=== PATIENT | male | born 1995 | race African-American/Black ===

== ENCOUNTER 2017-07-16 20:16 | Inpatient (IN) | payer OTHER ==
[~2017-07-16] VITALS: Ht 165.1 cm; Wt 55.0 kg
[2017-07-17 00:10] VITALS: BP 129/83
[2017-07-17] MEDS ORDERED: ACETAMINOPHEN TAB 650MG DOSE (2X325MG) PO PRN (01:00)
[2017-07-17] MEDS ORDERED: LORazepam 1 MG TAB PO PRN (01:00)
[2017-07-17] MEDS ORDERED: traZODone 50 MG TAB PO PRN (01:00)
[2017-07-17] MEDS ORDERED: MAALOX 30 ML SUSP *UDC PO PRN (01:00)
[2017-07-17] MEDS ORDERED: MOM 30ML SUSPENSION UDC PO PRN (01:00)
[2017-07-17 06:36] VITALS: BP 117/59
[2017-07-17] MEDS: NICOTINE 7 MG/24 HR TRANSDERMAL TD SCH (09:33)
--- NOTE | 2017-07-17 15:45 | MHHPE ---
DATE OF ADMISSION: 07/16/2017 LEGAL STATUS AT ADMISSION: 9.39 legal status CHIEF COMPLAINT: "I have been feeling depressed". 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 According to the record, the patient came to the emergency department to be evaluated for depression and suicidal thoughts. The patient stated that he received a phone call from his requesting divorce. His is also an active duty that is stationed in [place] state. They have been for one year. The patient has been deployed to [place] from September to two days ago. The patient reports was having suicidal thoughts, feeling confused, depressed, "incomplete". The patient has been in the [employer] three years. The patient states that prior to his calling, he could have episodes of short-lived moderate depression on and off, maybe two to three days out of a month in which he does not want to do anything, kept to himself, being more isolated. However, says that his energy, appetite, sleep or self esteem had not changed. Says that when he received the call from his , he was afraid that he may hurt himself. Making a statement such as "go away completely". So he decided to get help. During the interview there is no evidence of auditory or visual hallucinations or delusions. PAST MEDICAL HISTORY: The patient denies any acute medical problems. ALLERGIES: No known drug allergies. PAST PSYCHIATRIC HISTORY: The patient has no past psychiatric history. FAMILY HISTORY: The patient denies any psychiatric family history. The patient reports that substance abuse is on both sides of his family. SUBSTANCE ABUSE HISTORY: The patient denies any current or past problem with drugs or alcohol. He says that he a social drinker and he may drink one to two beers 2 to 3 times a week in a social context. SOCIAL HISTORY: The patient was raised mostly by his mother. Denies any abuse or neglect during childhood. No problems socializing. He used to have a few good friends as he does now. He has been for a year. Has been in the [employer] for the last three years. Has been deployed to [place] since September of 2016, until two days ago. 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 PSYCHIATRIC REVIEW OF SYSTEMS: Bipolar/elena: No evidence of destructibility, grandiosity, flight of ideas, or pressured speech. Substance abuse disorder: The patient answers negative to each question. Anxiety disorder: The patient reports anxiety and rumination, but denies panic, agoraphobia, obsessive-compulsive disorder (OCD), questioning and repetitively checking things over and over. Somatization disorder: Screening for pain, conversion, GI or sexual symptoms are negative. Eating disorder: Screening for dieting, use of laxatives, eating and binges is negative. Cognitive disorder: Screening for short and senior living memory, orientation, and general information is negative for cognitive disorder. Psychotic disorders: No evidence of delusions, paranoia, grandiosity, or samaritan preoccupation. No hallucinations. No looseness of association. PHYSICAL EXAMINATION: As per physician assistant buyer. LABS: Were not drawn at the emergency department. MENTAL STATUS EXAM: The patient is dressed in [facility]. The patient is calm and cooperative. His speech is soft and monotone. Has fair eye contact. Mood is depressed and anxious. Affect is restricted and labile. Tearful at times. No evidence of delusions or hallucinations. The patient is oriented to time, place, person and situation. Maintains attention and concentration correctly. Instant recall, recent and remote memory are intact. Thought processes are chronological and goal directed. The patient reports suicidal thoughts, but no homicidal ideation. Judgment and insight are fair. DIAGNOSES: Richmond I: Unspecified depressive disorder. Rule out major depressive disorder versus adjustment disorder with depressed mood. [place] II: Deferred. Richmond III: None acute. INITIAL TREATMENT PLAN: The patient was admitted on a 9.39 legal status. Complete history was obtained. With his permission family will be contacted and data base will be expanded. His medication regimen will be reviewed and changed accordingly. He will be provided with protected environment. He will be attending individual, group and milieu therapy. He will also receive supportive psychoeducation. Discharge planning will commence immediately. Length of stay will be between 5 and 7 days. Patient followup will be strongly recommended. Initial treatment plan will focus initially on depression and risks for suicide.
[2017-07-17 18:20] VITALS: BP 131/70
[2017-07-18 06:54] VITALS: BP 133/63
[2017-07-18] MEDS: NICOTINE 7 MG/24 HR TRANSDERMAL TD SCH ×2 (09:00→18:07)
[2017-07-18 20:52] VITALS: BP 121/67
[2017-07-19 06:32] VITALS: BP 133/60
[2017-07-19 06:53] LABS: BASO % 0.5 % (0.0-1.0); EOS # 0.3 10^3/uL (0.0-0.50); EOS % 9.2 % (0.0-3.0); LYMPH # 1.8 10^3/uL (1.5-6.5); MEAN CORPUSCULAR HEMOGLOBIN 27.1 pg (27.0-33.0); MEAN CORPUSCULAR HGB CONC 31.5 g/dl (32.0-36.5); MEAN CORPUSCULAR VOLUME 85.9 fl (80.0-96.0); MONO # 0.4 10^3/uL (0.0-0.8); MONO % 9.7 % (0.0-5.0); NEUTROPHILS # 1.2 10^3/uL (1.8-7.7); NEUTROPHILS % 32.6 % (36.0-66.0); PLATELET COUNT, AUTOMATED 193 10^3/uL (150-450); RED CELL DISTRIBUTION WIDTH 13.3 % (11.5-14.5); WHITE BLOOD COUNT 3.7 10^3/uL (4.0-10.0)
[2017-07-19 07:29] LABS: ALBUMIN 3.9 GM/DL (3.2-5.2); ALBUMIN/GLOBULIN RATIO 1.11 (1.00-1.93); ALKALINE PHOSPHATASE 46 U/L (45-117); ALT/SGPT 14 U/L (12-78); ANION GAP 6 MEQ/L (8-16); AST/SGOT 16 U/L (7-37); BILIRUBIN,TOTAL 0.7 MG/DL (0.2-1.0); BLOOD UREA NITROGEN 14 MG/DL (7-18); CARBON DIOXIDE LEVEL 31 MEQ/L (21-32); CHLORIDE LEVEL 106 MEQ/L (98-107); CREATININE FOR GFR 1.14 MG/DL (0.70-1.30); GLOMERULAR FILTRATION RATE > 60.0 (>60); GLUCOSE, FASTING 91 MG/DL (70-105); POTASSIUM SERUM 4.2 MEQ/L (3.5-5.1); SODIUM LEVEL 143 MEQ/L (136-145); T UPTAKE 40 % (33-40); THYROXINE (T4) 7.9 UG/DL (4.5-12.0); TOTAL PROTEIN 7.4 GM/DL (6.4-8.2)
[2017-07-19] MEDS: NICOTINE 7 MG/24 HR TRANSDERMAL TD SCH (08:41)
--- NOTE | 2017-07-19 11:54 | MHIPN ---
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 SUBJECTIVE: "I feel about the same." OBJECTIVE: The patient is denying any symptoms of depression and suicidal ideation. The patient is interacting minimally with other patients and staff. There is no evidence of psychotic symptoms. No auditory or visual hallucinations. No delusions. The patient says that since he has been here he has been feeling better. MENTAL STATUS EXAMINATION: The patient is dressed in [facility]. Patient is calm and cooperative. Has fair eye contact. Speech is slow and monotone. Mood is slightly depressed. Affect is somewhat restricted. No delusions. No hallucinations. Attention, concentration and memory are fair. The patient is able to contract for safety. Insight and judgment fair. ASSESSMENT: 1. Depression. 2. Suicidal ideation. PLAN: 1. Continue with observation. No psychotropic medication has been prescribed at this time since the patient is denying suicidal thoughts and denying depression and prefers not to be started on any medication.
--- NOTE | 2017-07-19 13:00 | MHHPE ---
DATE OF ADMISSION: 07/16/2017 Please refer to psychiatric history and evaluation for further details on this admission. This examination and history is intended for medical issues which may need treatment, followup or consult on this 22-year-old male. ALLERGIES: No known allergy. PRIMARY CARE PROVIDER: [facility]. SOCIAL HISTORY: He is . 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 His is a soldier. She is currently stationed elsewhere. EtOH two to three times a week, beer. Smokes 4-5 cigarettes per day. Recreational drug use none. PAST MEDICAL HISTORY: Negative. PAST SURGICAL HISTORY: Negative. HOME MEDICATIONS: None. FAMILY HISTORY: Noncontributory. Ten systems review was done and was unremarkable. PHYSICAL EXAMINATION: 22-year-old cooperative male in no acute distress. Height 65 inches, weight 55 kg. BMI 20.2. Blood pressure 133/63, pulse 62, respirations 16, temperature 98.8. The patient is alert and oriented times three. Pupils equal and reactive to light. Extraocular movements intact. Cornea and sclera clear. Conjunctiva normal. No facial asymmetry. Pharynx, tongue and gums pink and moist. Tongue is midline. Neck is supple, without lymphadenopathy. No thyromegaly. No goiter. Carotids 2+ without bruit. Chest clear to auscultation, without wheeze or retraction. Heart is regular. Abdomen benign. Bowel sounds positive. Genitourinary ()/Rectal: Not done. Extremities show equal strength, full range of motion. No cyanosis, clubbing or edema. Peripheral pulses equal and palpable bilaterally. Skin is warm and dry. IMPRESSION AND PLAN: 1. Psychiatric plan per psychiatry. No acute medical issues.
[2017-07-19 18:00] VITALS: BP 110/67
--- NOTE | 2017-07-20 04:30 | MHIPN ---
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 SUBJECTIVE: "I feel much better. I was able to talk to my ." OBJECTIVE: Patient is improving, appears less depressed. No psychomotor retardation. His facial expression is less restricted. He is interacting better with other patients and staff. There is no evidence of psychotic symptoms. No auditory or visual hallucinations or delusions. Insight is improved. MENTAL STATUS EXAMINATION: Patient is dressed in [facility]. Patient is cooperative. Has fair eye contact. Speech is slow and monotone. Mood is depressed, but improved. Affect is less restricted. No delusions. No hallucinations. Attention, memory and concentration are fair. Patient is able to contract for safety. Insight and judgment are fair. ASSESSMENT: 1. Depression. 2. Suicidal ideation. PLAN: Continue observation since patient at this time is improving and denying suicidal thoughts and the trigger for this admission was the fact that his asked him for a divorce.
[2017-07-20 06:44] VITALS: BP 112/61
[2017-07-20] MEDS: NICOTINE 7 MG/24 HR TRANSDERMAL TD SCH (08:28)
[2017-07-20 18:12] VITALS: BP 120/63
--- NOTE | 2017-07-20 18:13 | IPN ---
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 SUBJECTIVE: "I am okay." OBJECTIVE: Patient has improved significantly since admission. Patient no longer has psychomotor retardation. He is no longer labile. He is interacting well with other patients and the staff. No psychotic symptoms. No auditory or visual hallucinations. No delusions. Insight is improved. MENTAL STATUS EXAMINATION: Patient dressed in [facility]. He is cooperative. Fair eye contact. Speech is normal in rate, volume and articulation. Mood is less depressed. Affect is less restricted. No delusions. No hallucinations. Attention, concentration and memory are fair. Patient is keisha for safety. Insight and judgment are fair. ASSESSMENT: 1. Depression. 2. Suicidal ideation. PLAN: Continue with current treatment. Patient prefers to be treated only with psychosocial measures and does not like to take medication. Patient is improving.
[2017-07-21 06:49] VITALS: BP 116/59
[2017-07-21] MEDS: NICOTINE 7 MG/24 HR TRANSDERMAL TD SCH (08:47)
--- NOTE | 2017-07-21 17:40 | MHIPN ---
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 SUBJECTIVE: "I am feeling fine." OBJECTIVE: The patient reports significant improvement. The patient denied any feelings of depression or suicidal ideation. There is no evidence of psychotic symptoms. No auditory or visual hallucinations or delusions. Insight is fair. MENTAL STATUS EXAMINATION: Patient dressed in [facility]. Calm and cooperative. Has fair eye contact. Speech is normal in rate, volume and articulation. Mood is euthymic. Affect is congruent with mood. No delusions. No hallucinations. Attention, concentration and memory are fair. Patient denies suicidal or homicidal ideations. Insight and judgment are fair. ASSESSMENT: 1. Depression. 2. Suicidal ideation. PLAN: The patient is doing much better. If continues improving, will discharge tomorrow after a chain of command meeting.
[2017-07-21 18:00] VITALS: BP 127/70
[2017-07-22 06:00] VITALS: BP 94/58
[2017-07-22] MEDS: NICOTINE 7 MG/24 HR TRANSDERMAL TD SCH (08:59)
--- NOTE | 2017-07-22 15:31 | MHDS ---
DATE OF ADMISSION: 07/16/2017 DATE OF DISCHARGE: 07/22/2017 LEGAL STATUS AT ADMISSION: 9.39 legal status. 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 According to the record, patient came to the emergency department (ED) to be evaluated for depression and suicidal thoughts. Patient stated that he received a phone call from his requesting a divorce. His is also in active duty and is stationed in [place] state. They have been for one year. Patient has been deployed to [place] from September to two days ago. Patient reports he was having suicidal thoughts, feeling confused, depressed, "incomplete". Patient has been in the [employer] for 3 years. Patient states that prior to his calling, he could have episodes of short-lived moderate depression on and off maybe 2-3 days out of a month, in which he does not want to do anything, keeping to himself, being more isolated. However, he says that his energy, appetite, sleep, and self-esteem had not changed. He says that when he received the call from his , he was afraid that he may hurt himself, so he decided to get help. During the interview, there was no evidence of auditory or visual hallucinations or delusions. LABORATORY DATA AT ADMISSION: CBC showed white blood cells of 3.7, hemoglobin of 13.5, rest within normal limits. CMP was unremarkable. TSH was within normal limits as was thyroid function. HOSPITAL COURSE: After the first evaluation and given the fact that he was denying major symptoms of depression and was already denying suicidal ideation, it was decided not to start any psychotropic medication. Patient has continued to deny any suicidal thoughts. I could not observe signs or symptoms of major depression. Patient has been interacting well with other patients and staff. No psychomotor retardation. He was able to smile and joke with other patients. He was sleeping well without the help of medication. He denied feelings of anxiety. He also stated that he and his have been talking and in his opinion they are going to try to reconcile. At the moment of discharge, patient is in a stable condition with no auditory or visual hallucinations, delusions, suicidal or homicidal ideation. A chain of command meeting was held before discharge, chain of command is supportive, so he is discharged in a stable condition on 07/22/2017. MEDICATIONS AT DISCHARGE: No psychotropic medications are prescribed. MENTAL STATUS EXAMINATION AT DISCHARGE: Patient is dressed in [facility]. Patient is calm and cooperative. His speech is clear, coherent, with normal rate and is spontaneous. Patient has good eye contact. Mood is euthymic. Affect is appropriate and congruent with mood. Patient is oriented to time, place, person, and situation. Maintains attention and concentration correctly. Instant recall, recent, and remote memory are intact. Thought processes are coherent, logical, and goal-directed. Patient does not have auditory or visual hallucinations. Patient does not have paranoid, persecutory, somatic, grandiose, or religions delusions. Patient denies suicidal or homicidal ideation. Judgment and insight are fair. DISCHARGE DIAGNOSES: AXIS I: Adjustment disorder with depressed and anxious mood. AXIS II: Deferred. AXIS III: None acute. CONDITION AT DISCHARGE: Stable. No auditory or visual hallucinations, no delusions, no suicidal or homicidal ideation. INSTRUCTIONS TO THE PATIENT: Patient has an appointment at [facility]. He is advised to maintain absolute sobriety from drugs and alcohol.
== END 2017-07-22 13:08 | disposition home or self-care (01) | DRG 882 ==
LOC: M ED 20:16 → M ED INP 22:20 → M PSY 07-17 00:09
PROVIDERS: ADMIT Psychiatry & Neurology Psychiatry; ATTEND Psychiatry & Neurology Psychiatry
DX: F43.23 Adjustment disorder with mixed anxiety and depressed mood (principal); F17.210 Nicotine dependence, cigarettes, uncomplicated